=== PATIENT | female | born 1970 | race Caucasian/White ===

== ENCOUNTER → 2019-04-05 | Outpatient (CLI) | payer OTHER ==
[~2019-04-05] MED LIST: ACETAMINOPHEN-1 EAC1 PO; ASA81BEC PO; CALCIUM 600 +1 EAC1 PO; CARVEDILOL25 MG PO; CIPRO500 MG PO; DEMADEX10 MG PO; ETHINYL ESTRADIOL PO; FENTANYL PATCH75 MCG TRANSDERM; FISH OIL 1,001000 M2 PO; GLUCOSAMINE &1 EAC1 PO; KLOR-CON 10 ER10 MEQ PO; LISINOPRIL10 MG PO; NEURONTIN 300300 M1 PO; NORETHINDRONE PO; PACERONE 200 M200 M1 PO; PRILOSEC40 MG PO; PRINIVIL10 MG PO; TYLENOL325 MG PO; XANAX 0.25 MG0.25 MG PO; [UNRECOGNIZED DRUG - CODE] PO
== END ==
LOC: SJCVC 13:12
DX: T82.110A Breakdown (mechanical) of cardiac electrode, initial encounter (principal); I42.8 Other cardiomyopathies; I47.2 Ventricular tachycardia; E78.5 Hyperlipidemia, unspecified; I10 Essential (primary) hypertension; I42.9 Cardiomyopathy, unspecified; Z86.73 Personal history of transient ischemic attack (TIA), and cerebral infarction without residual deficits; Z79.82 Long term (current) use of aspirin; Z79.899 Other long term (current) drug therapy; Z88.5 Allergy status to narcotic agent; Z88.8 Allergy status to other drugs, medicaments and biological substances; Y71.8 Miscellaneous cardiovascular devices associated with adverse incidents, not elsewhere classified; Y84.8 Other medical procedures as the cause of abnormal reaction of the patient, or of later complication, without mention of misadventure at the time of the procedure; Y92.89 Other specified places as the place of occurrence of the external cause; Z95.810 Presence of automatic (implantable) cardiac defibrillator

== ENCOUNTER → 2019-06-22 | Outpatient (CLI) | payer OTHER | LOC: SJCVC 10:04 | DX: Z45.02 Encounter for adjustment and management of automatic implantable cardiac defibrillator (principal); R94.31 Abnormal electrocardiogram [ECG] [EKG]; I42.9 Cardiomyopathy, unspecified; E78.00 Pure hypercholesterolemia, unspecified; I10 Essential (primary) hypertension; I49.01 Ventricular fibrillation; M19.90 Unspecified osteoarthritis, unspecified site; Z96.651 Presence of right artificial knee joint; Z79.899 Other long term (current) drug therapy ==

== ENCOUNTER → 2019-12-25 | Outpatient (CLI) | payer OTHER | LOC: SJCVC 14:33 | PROVIDERS: ATTEND Internal Medicine Cardiovascular Disease | DX: R94.31 Abnormal electrocardiogram [ECG] [EKG] (principal); I42.9 Cardiomyopathy, unspecified; I47.2 Ventricular tachycardia; I48.91 Unspecified atrial fibrillation; E78.5 Hyperlipidemia, unspecified; M06.09 Rheumatoid arthritis without rheumatoid factor, multiple sites; Z95.810 Presence of automatic (implantable) cardiac defibrillator; Z79.899 Other long term (current) drug therapy; Z86.39 Personal history of other endocrine, nutritional and metabolic disease ==

== ENCOUNTER → 2020-07-18 | Outpatient (CLI) | payer OTHER | LOC: SJCVC 15:02 | PROVIDERS: ATTEND Internal Medicine Cardiovascular Disease | DX: I42.8 Other cardiomyopathies (principal); I10 Essential (primary) hypertension; I47.2 Ventricular tachycardia; T82.110A Breakdown (mechanical) of cardiac electrode, initial encounter; M19.90 Unspecified osteoarthritis, unspecified site; E78.5 Hyperlipidemia, unspecified; Z95.810 Presence of automatic (implantable) cardiac defibrillator; Z88.5 Allergy status to narcotic agent; Z88.8 Allergy status to other drugs, medicaments and biological substances; Z79.82 Long term (current) use of aspirin; E78.00 Pure hypercholesterolemia, unspecified; Z79.899 Other long term (current) drug therapy; Z82.49 Family history of ischemic heart disease and other diseases of the circulatory system; Y83.8 Other surgical procedures as the cause of abnormal reaction of the patient, or of later complication, without mention of misadventure at the time of the procedure; Y82.8 Other medical devices associated with adverse incidents ==